=== PATIENT | female | born 1990 | race Caucasian/White ===

== ENCOUNTER 2020-04-10 07:54 | Inpatient (IN) | payer MEDICAID, SELFPAY ==
[2020-04-10] VITALS (20 sets, daily range): BP systolic 124–150; BP diastolic 67–98; PULSE 68–90; RESP 12–18; TEMP 36.2–37.1; O2SAT 96–100; BMI 31.6
[2020-04-10] MEDS: Lactated Ringers 1,000 ML 50 ML IV (08:30)
[2020-04-10 08:47] LABS: Hematocrit 40.8 % (37-47); Hemoglobin 13.8 g/dL (12.0-15.0); Mean Corp Hgb Conc 33.8 g/dL (32-36); Mean Corpuscular Hgb 32.4 pg (27.0-32.0); Mean Corpuscular Volume 95.8 fL (81-99); Mean Platelet Vol. 10.7 fl (6.2-12.0); Platelet Count 225 K/mm3 (150-450); RBC Distribution Width CV 12.6 % (11.6-14.6); Red Blood Count 4.26 M/mm3 (4.2-5.4); White Blood Count 9.1 K/mm3 (4.4-11.0)
[2020-04-10 08:55] LABS: AST(SGOT) 23 U/L (15-37); Alanine Aminotransfer ALT/SGPT 24 U/L (13-56); Creatinine, Serum 0.69 mg/dL (0.55-1.02); EST Glomerular Filtration Rate 109 mL/min (>60); Est Glom Filt Rate - Afr Amer 131 mL/min (>60); Estimated Creatinine Clearance 96.86 ml/min; Uric Acid 5.2 mg/dL (2.6-6.0)
[2020-04-10] MEDS: Lactated Ringers 1,000 ML 999 ML IV (10:20)
[2020-04-10] MEDS: Sodium Citrate/Citric Acid 30 ML UDC PO (10:29)
[2020-04-10] MEDS: Acetaminophen 500 MG Tablet 1000 MG PO ×3 (10:29→22:30)
--- NOTE | 2020-04-10 10:41 | PCM.HP.OB ---
History Date of Admission: 04/10/20 Final ROBINSON: 04/30/20 Final ROBINSON Source: US <20 weeks Gestational age: 37 Weeks and 1 Days History of this : This is a 29 year-old, para 0-0-3-0 presents at 37-1/7 weeks gestation with a EDC of 04/30/2020 with diagnosis of gestational hypertension and breech presentation. His headaches, visual changes, or epigastric pain. She has had good movement. No regular contractions. No gross vaginal bleeding or leaking of fluid. She was seen in the office this week and had an ultrasound which revealed an AGA fetus in the breech presentation with amniotic fluid volume of 1 cm. She was also noted to have increased blood pressures with normal preeclampsia labs. Allergies amoxicillin Allergy (Verified 04/10/20 08:21) Hives Home Medications: Home Medications Vits [Prenatabs FA] 1 tab PO DAILY 04/10/20 Smoking Status: Never smoker Alcohol: None Number of Fetus(es): 1 NST - FHR Rate Baby A Baseline: normal Variability:: Moderate Accelerations:: 15 x 15 Decelerations:: None NST Reactive:: Yes FHR Category:: Category I Uterine Activity:: irritability History Past Pregnancies: Past Pregnancies Delivery Date Name GA/ Weeks Outcome Route Wt Sex Labor Length Anesthesia Delivery Location Provider FOB Review of Systems Constitutional: Denies: Anorexia, Chills, Fever, Night Sweats Eyes: Denies: Blurred vision HEENT: Denies: Difficulty Hearing Cardiovascular: Denies: Chest Pain Respiratory: Denies: Cough, Shortness of Breath Genitourinary: Denies: Dysuria Neurological: Denies: Blurred vision, Double vision, Change in Speech, Slurred speech, Confusion Hematologic/ Lymphatic: Denies: Anemia, Easy Bruising, Easy Bleeding, Hx of blood clot Physical Exam Vitals: Vital Signs Temp Pulse BP Pulse Ox 98.8 F 90 140/67 H 98 04/10/20 08:17 04/10/20 08:16 04/10/20 08:16 04/10/20 08:13 General: Alert, Cooperative, No apparent distress Cardiovascular: Regular rate, Regular Rhythm Lungs: Clear to auscultation, Normal air movement Abdomen: Soft, Non Tender, Non-Distended, Gravid, Appropriate for Gestational Age Extremities:: Other - edema 1+ Neurological: Cranial nerves II-XII grossly intact, Deep Tendon Reflexes 2+/4 and Symmetrical. Negative for: Slurred Speech RN DOCUMENT IMPROVEMENT: Normal external genitalia Estimated gestational size: Appropriate for gestational size Presentation: Breech Assessment/Plan This is a 29 year-old, 4 para 0 at 37-1/7 weeks gestation with complete breech presentation and gestational hypertension. No evidence of preeclampsia. Will monitor blood pressures. Discussed with patient risk benefits and alternatives to delivery at 37 weeks with gestational hypertension. Her questions were answered to her satisfaction she desires to proceed. Discussed with her also risk benefits alternatives and personnel involved with attempted external cephalic version. Consent was signed and she desires to proceed. Procedure note: For the external cephalic version a brief ultrasound was done at the bedside confirming complete breech presentation. NST was reactive. Timeout was performed. Consent had been signed. I attempted to lift the buttocks out of the pelvis and have the fetus do a frontward roll. An attempt was made for approximately 30 seconds. There is minimal movement of the head and buttocks. heart tones were then visualized at 110 and recovered to 140 bpm. 2-minute rest was given. I then attempted to another forward roll there was unsuccessful. I attempted a backward roll that was also unsuccessful. heart tones were again 110 and recovered to the 130s and 140s. At this point I discussed with the patient that the buttocks are pretty well engaged and I was unable to perform an external cephalic version. Procedure was ended. Patient and fetus tolerated the procedure well. Fetus was placed back on the monitor. We will proceed with delivery when team is assembled. Patient's questions were answered. Start time:1011 am End time: 1019 am complications-none anesthesia-none EBL- none
--- NOTE | 2020-04-10 11:41 | OP.PCM_ITS ---
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 She was prepped and draped in the dorsal supine position with a leftward tilt. A Pfannenstiel skin incision was made approximately 2 cm above the symphysis pubis and carried through to underlying layer fascia with the scalpel. The fascial patient was extended with blunt dissection. The fascia was dissected off the rectus muscles superiorly. The rectus muscles were in the midline and the peritoneum was entered sharply. The peritoneal incision was stretched and the bladder blade was placed. The uterine incision was made in a low transverse fashion with the scalpel and extended superiorly and inferiorly with blunt dissection. The amniotic membranes were ruptured bluntly and clear amniotic fluid returned. The 's buttocks were brought to the incision the legs were swept out individually. The baby was back up and the arms were swept out individually and the head delivered with gentle traction on the axilla and fundal pressure without difficulty and less than 10 seconds.. The mouth and nares were bulb suctioned. The cord was clamped and cut as the was stimulated. Cord clamping was delayed. The infant was handed off to the waiting nursing staff. The placenta was delivered with fundal massage and gentle traction in the standard fashion. The uterus was exteriorized and cleared of all clots and debris. The cervix was dilated with a ring forcep. The uterine incision was closed with #1 Vicryl in a running locked fashion. A second layer of the same suture was used in an imbricating fashion. The incision was examined and was found to be hemostatic. The uterus was placed back into the peritoneal cavity and hemostasis was again confirmed. The rectus muscles were examined and any bleeding was Bovie cauterized. The parietal peritoneum and rectus muscles were closed en bloc with an 0 Vicryl running suture. The surgical teams outer gloves were then changed. The rectus fascia was examined and any bleeding was Bovie cauterized and the rectus fascia was closed with 1 Vicryl suture in a running standard fashion. The subcutaneous tissue was examining and any bleeding was Bovie cauterized. The subcutaneous tissue was reapproximated with 3-0 Vicryl suture. The skin was closed in a subcuticular fashion by the TENANT COORDINATOR with me present in the labor and delivery suite. I performed the remainder of the procedure with assistance. All sponge, lap, and needle counts were correct. The patient was taken to her room for recovery in a stable condition. Start time: 1111 Stop time: 1146 Amniotic Membrane Rupture Type: Artificial Amniotic Fluid Description: Clear Placenta Disposition: [facility] Specimen(s) sent to pathology: none Drain: Martínez to straight drain Fluids Replaced: 1300 cc Cord Entanglement: None Cord Vessel Description: 3 Vessels Esitmated Blood Loss (ml): 600 Gender: Male - Edward Delayed cord clamping: Yes Antibiotic Given: Clindamycin 600mg IV x1 and Gentamicin 1.5mg/kg IV x1 - Admit VTE Documentation VTE Present on Admission: No VTE Mechan Device Prophylaxis: SCD's VTE Pharm Prophylaxis ordered?: No Reason prophylaxis not ordered:: Procedure Not Indicated
[2020-04-10] MEDS: Oxytocin 30 units/NS 500 ml 30 UNITS/500 ML IV.SOLN 167 UNITS IV (12:15)
[2020-04-10] MEDS: DiphenhydrAMINE 25 MG Capsule PO (13:46)
[2020-04-10] MEDS: Ondansetron 4 MG/2 ML Vial IV (14:09)
[2020-04-10] MEDS: 0.9% Saline Lock 10 ML Syringe IV ×3 (14:09→23:42)
[2020-04-10] MEDS: proCHLORPERazine 10 MG/2 ML Vial IV (15:23)
[2020-04-10] MEDS: Lactated Ringers 1,000 ML 100 ML IV (15:25)
[2020-04-10] MEDS: Ketorolac 30 MG/ML Syringe IV ×2 (17:56→23:42)
[2020-04-11] MEDS: Acetaminophen 500 MG Tablet 1000 MG PO ×4 (04:29→22:47)
[2020-04-11 04:31] VITALS: BP 131/90; PULSE 78; RESP 16; TEMP 36.4
[2020-04-11] MEDS: 0.9% Saline Lock 10 ML Syringe IV ×2 (05:31→12:03)
[2020-04-11] MEDS: Ketorolac 30 MG/ML Syringe IV ×2 (05:31→12:03)
[2020-04-11 05:47] LABS: Hematocrit 35.5 % (37-47); Hemoglobin 11.8 g/dL (12.0-15.0); Mean Corp Hgb Conc 33.2 g/dL (32-36); Mean Corpuscular Hgb 32.1 pg (27.0-32.0); Mean Corpuscular Volume 96.5 fL (81-99); Mean Platelet Vol. 10.3 fl (6.2-12.0); Platelet Count 192 K/mm3 (150-450); RBC Distribution Width CV 12.5 % (11.6-14.6); RBC Distribution Width SD 43.7 fl (35.1-43.9); Red Blood Count 3.68 M/mm3 (4.2-5.4); White Blood Count 12.9 K/mm3 (4.4-11.0)
[2020-04-11 08:05] VITALS: BP 146/98; PULSE 98; RESP 18; TEMP 36.6
[2020-04-11] MEDS: Senna/Docusate Sodium 1 Tablet PO (10:39)
--- NOTE | 2020-04-11 12:25 | PCM.PN.OB ---
Subjective: Doing well per patient and nursing staff. ambulating and taking PO without difficulty. Voiding and passing flatus. Pain controlled. . Denies chest pain, shortness of breath, or leg pain. Lochia normal. - Physical Exam Vitals/I&O's: Vital Signs Temp Pulse Resp BP Pulse Ox 97.8 F 98 18 146/98 H 97 04/11/20 08:05 04/11/20 08:05 04/11/20 08:05 04/11/20 08:05 04/10/20 23:46 Oxygen Delivery Method Room Air Weight: 173 lb Body Mass Index (BMI) 31.6 Intake and Output for Last 24 Hours 04/09/20 04/10/20 04/11/20 23:59 23:59 23:59 Intake Total 3602.25 / 3602.25 Output Total 1000 / 1000 Balance 2602.25 / 2602.25 General: Alert, Oriented x3, Cooperative HEENT: Atraumatic, Normocephalic Neck: Trachea Midline Lungs: Clear to auscultation, Normal air movement, No rhonchi, No wheeze Cardiovascular: Regular rate, Regular Rhythm, No murmurs Abdomen: Bowel Sounds Present, Soft - fundus firm 2 below U. Dressing dry and intact Extremities: Edema - +1 non pitting edema BLE. Kirsty's negative. No redness, Peripheral Pulses Normal Neurological: Deep Tendon Reflexes 2+/4 and Symmetrical Psych/Mental Status: Normal Affect, Appropriate Laboratory Results 04/11/20 05:35: WBC 12.9 H, RBC 3.68 L, Hgb 11.8 L, Hct 35.5 L, MCV 96.5, MCH 32.1 H, MCHC 33.2, RDW Std Deviation 43.7, RDW Coeff of Deep 12.5, Plt Count 192, MPV 10.3 Current Medications Acetaminophen (Acetaminophen 500 Mg Tablet) 1,000 mg PO Q6H [facility] Last Admin: 04/11/20 11:07 Dose: 1,000 mg Documented by: Bisacodyl (Bisacodyl 10 Mg Suppository) 10 mg RECTAL UD PRN PRN Reason: If no BM Hydrocortisone (Hydrocortisone 2.5% Crm) 1 applic TOPICAL TID PRN PRN; Protocol PRN Reason: Discomfort Lactated Ringer's () 1,000 mls @ 100 mls/hr IV .Q10H [facility] Last Admin: 04/11/20 09:13 Dose: Not Given Documented by: Ibuprofen (Ibuprofen 600 Mg Tablet) 600 mg PO Q6H [facility] Methylergonovine Maleate (Methylergonovine 0.2 Mg/Ml Ampul) 0.2 mg IM X1 PRN PRN Reason: Uterine Atony Naloxone HCl (Naloxone 0.4 Mg/Ml Syringe) 0.02 mg IV Q1M PRN PRN Reason: RR <10 and pt unresponsive Ondansetron HCl (Ondansetron 4 Mg/2 Ml Vial) 4 mg IV Q4H PRN PRN PRN Reason: Nausea Last Admin: 04/10/20 14:09 Dose: 4 mg Documented by: Oxycodone HCl (Oxycodone 5 Mg Tablet) 5 - 10 mg PO Q4H PRN PRN PRN Reason: Pain Score 4-10 Prochlorperazine Edisylate (Prochlorperazine 10 Mg/2 Ml Vial) 10 mg IV Q6H PRN PRN PRN Reason: NAUSEA Last Admin: 04/10/20 15:23 Dose: 10 mg Documented by: Senna/Docusate Sodium (Senna/Docusate Sodium 1 Tablet) 0 tablet PO DAILY [facility] Last Admin: 04/11/20 10:39 Dose: 1 tablet Documented by: Simethicone (Simethicone 80 Mg Tablet) 80 mg PO [facility]S PRN PRN Reason: Indigestion/stomach pain Sodium Chloride (0.9% Saline Lock 10 Ml Syringe) 5 - 15 ml IV PRN PRN PRN Reason: SALINE FLUSH Last Admin: 04/11/20 12:03 Dose: 10 ml Documented by: Sodium Chloride (0.9% Saline Lock 10 Ml Syringe) 5 - 15 ml IV UD PRN PRN Reason: SALINE FLUSH Medical Necessity - Tobacco Use Smoking Status: Never smoker Assessment/Plan A:POD #1 Primary Section Gestational HTN P: 1) Routine care and support 2) BP stable 3) Hgb 11.8 stable 4) Plan D/C on POD #3 due to GHTN 5) Pain management
[2020-04-11 14:50] VITALS: BP 148/89; PULSE 94; RESP 18; TEMP 36.7
[2020-04-11] MEDS: Ibuprofen 600 MG Tablet PO ×2 (17:12→22:47)
[2020-04-11 19:50] VITALS: BP 144/97; PULSE 91; RESP 16; TEMP 36.5; O2SAT 96
[2020-04-12 02:02] VITALS: BP 141/92; PULSE 75; RESP 16; TEMP 36.7; O2SAT 97
--- NOTE | 2020-04-12 02:05 | NURSING ---
Pt. c/o burning on outer left side of dressing. This RN assessed area and saw there is very mild skin breakdown with a small amount of redness from what looks like where the drape was. Will continue to monitor.
[2020-04-12] MEDS: Acetaminophen 500 MG Tablet 1000 MG PO (04:46)
[2020-04-12] MEDS: Ibuprofen 600 MG Tablet PO (04:47)
[2020-04-12 04:49] VITALS: BP 142/96; PULSE 91; RESP 18
[2020-04-12 08:30] VITALS: BP 138/94; PULSE 87; RESP 16; TEMP 36.4
--- NOTE | 2020-04-12 08:34 | PCM.PN.OB ---
Subjective: Seen at bedside, doing well. Patient denies any headaches, visual changes, right upper quadrant pain. Patient reports good pain control. Mild lochia. Tolerating regular diet. Denies any nausea or vomiting. - Physical Exam Vitals/I&O's: Vital Signs Temp Pulse Resp BP Pulse Ox 97.6 F L 87 16 138/94 H 97 04/12/20 08:30 04/12/20 08:30 04/12/20 08:30 04/12/20 08:30 04/12/20 02:02 Oxygen Delivery Method Room Air Weight: 78.471 kg Body Mass Index (BMI) 31.6 Intake and Output for Last 24 Hours 04/10/20 04/11/20 04/12/20 23:59 23:59 23:59 Intake Total 3602.25 / 3602.25 Output Total 1000 / 1000 Balance 2602.25 / 2602.25 General: Alert, Oriented x3 Abdomen: Soft, Non-Distended, - - Dressing is dry and intact. fundus firm Neurological: Cranial nerves II-XII grossly intact Current Medications Acetaminophen (Acetaminophen 500 Mg Tablet) 1,000 mg PO Q6H [facility] Last Admin: 04/12/20 04:46 Dose: 1,000 mg Documented by: Bisacodyl (Bisacodyl 10 Mg Suppository) 10 mg RECTAL UD PRN PRN Reason: If no BM Hydrocortisone (Hydrocortisone 2.5% Crm) 1 applic TOPICAL TID PRN PRN; Protocol PRN Reason: Discomfort Ibuprofen (Ibuprofen 600 Mg Tablet) 600 mg PO Q6H [facility] Last Admin: 04/12/20 04:47 Dose: 600 mg Documented by: Methylergonovine Maleate (Methylergonovine 0.2 Mg/Ml Ampul) 0.2 mg IM X1 PRN PRN Reason: Uterine Atony Naloxone HCl (Naloxone 0.4 Mg/Ml Syringe) 0.02 mg IV Q1M PRN PRN Reason: RR <10 and pt unresponsive Ondansetron HCl (Ondansetron 4 Mg/2 Ml Vial) 4 mg IV Q4H PRN PRN PRN Reason: Nausea Last Admin: 04/10/20 14:09 Dose: 4 mg Documented by: Oxycodone HCl (Oxycodone 5 Mg Tablet) 5 - 10 mg PO Q4H PRN PRN PRN Reason: Pain Score 4-10 Prochlorperazine Edisylate (Prochlorperazine 10 Mg/2 Ml Vial) 10 mg IV Q6H PRN PRN PRN Reason: NAUSEA Last Admin: 04/10/20 15:23 Dose: 10 mg Documented by: Senna/Docusate Sodium (Senna/Docusate Sodium 1 Tablet) 0 tablet PO DAILY [facility] Last Admin: 04/11/20 10:39 Dose: 1 tablet Documented by: Simethicone (Simethicone 80 Mg Tablet) 80 mg PO [facility] PRN PRN Reason: Indigestion/stomach pain Sodium Chloride (0.9% Saline Lock 10 Ml Syringe) 5 - 15 ml IV PRN PRN PRN Reason: SALINE FLUSH Last Admin: 04/11/20 12:03 Dose: 10 ml Documented by: Sodium Chloride (0.9% Saline Lock 10 Ml Syringe) 5 - 15 ml IV UD PRN PRN Reason: SALINE FLUSH Medical Necessity - Tobacco Use Smoking Status: Never smoker Assessment/Plan POD#2, s/p c/s with GEST HTN 1) continue to monitor BPs- consider Labetalol 100 BID 2) likely dc home tomorrow 3) Pain mgmt 4) ambulation
--- NOTE | 2020-04-12 11:30 | NURSING ---
pt requesting form to sign out AMA; discussed physician's wishes for her to stay today to monitor blood pressures; Francesca Valentine, charge nurse also visited with Caity.. Encouraged to check blood pressures at home and also keep follow up apt with Dr. Arellano next week. Pre-e info. provided. She is choosing to leave. Dr. Gonzalez informed. and pt escorted out via w/c at 1045.
== END 2020-04-12 10:40 | disposition home or self-care (01) | DRG 540 ==
PROVIDERS: Admitting Provider Obstetrics & Gynecology; Visit Provider Obstetrics & Gynecology
DX: O32.1XX0 Maternal care for breech presentation, not applicable or unspecified (principal); O13.4 Gestational [pregnancy-induced] hypertension without significant proteinuria, complicating childbirth; Z3A.37 37 weeks gestation of pregnancy; Z37.0 Single live birth
CPT/HCPCS: 59025; 59050; 59412; 76815; 82565; 84450; 84460; 84550; 85027; 86850; 86900; 86901; 99218; 99251; J7120; A4216; G0378; G0463; J2405